=== PATIENT | female | born 1980 | race Caucasian/White ===

== ENCOUNTER 2024-12-03 11:31 | Emergency (ER) | payer MEDICAID ==
[~2024-12-03] VITALS: Ht 162.6 cm; Wt 68.0 kg
[2024-12-03 11:39] VITALS: O2SAT 100
[2024-12-03] MEDS ORDERED: MECLIZINE 25MG TABLET PO ONE (13:15)
[2024-12-03 16:02] LABS: BASOPHILS % 0.2 % (0.0-2.0); EOSINOPHILS % 0.1 % (0.0-5.0); HEMATOCRIT. 43.2 % (36.0-48.0); HEMOGLOBIN. 14.2 g/dL (12.0-16.0); LYMPHOCYTES % 10.2 % (20.0-50.0); MEAN PLATELET VOLUME 11.2 fl (7.4-10.4); MONOCYTES % 2.0 % (2.0-8.0); NEUTROPHILS % 87.5 % (40.0-76.0); PLATELET 177 x1000/uL (130-400); RED BLOOD CELL COUNT 4.78 mill/uL (4.2-5.4); RED CELL DISTRIBUTION WIDTH 13.2 % (11.6-14.6)
[2024-12-03 16:13] LABS: INR 1.0
[2024-12-03] MEDS: MECLIZINE 25MG TABLET PO NR (16:15)
[2024-12-03] MEDS: IBUPROFEN 600MG TABLET PO ONE (16:19)
[2024-12-03 16:23] LABS: CREATININE 0.9 mg/dL (0.6-1.0); TROPONIN I HIGH SENSITIVITY 4 ng/L (3.0-34); UREA NITROGEN BLOOD 7 mg/dL (9-23)
[2024-12-03 16:25] LABS: ASPARTATE AMINOTRANSFERASE 22 IU/L (<34); BILIRUBIN DIRECT 0.5 mg/dL (<=3.0); BILIRUBIN TOTAL 2.0 mg/dL (0.1-1.0); PROTEIN TOTAL 7.7 g/dL (6.0-8.3)
[2024-12-03 17:11] LABS: CLARITY URINE CLEAR (CLEAR); COLOR URINE YELLOW (YELLOW); GLUCOSE URINE NEGATIVE (NEGATIVE); KETONES URINE NEGATIVE (NEGATIVE); LEUKOCYTE ESTERASE URINE NEGATIVE (NEGATIVE); NITRITE URINE NEGATIVE (NEGATIVE); OCCULT BLOOD URINE NEGATIVE (NEGATIVE); PH URINE 6.5 (4.5-8.0); PROTEIN URINE NEGATIVE (NEGATIVE); SPECIFIC GRAVITY URINE 1.005 (1.005-1.030); UROBILINOGEN URINE 0.2 E.U./dL (0.2-1.0)
[2024-12-03] MEDS ORDERED: IBUP-1455 MT (17:14)
[2024-12-03] MEDS ORDERED: MECL-299 MT (17:14)
[2024-12-03 17:28] LABS: HCG SCREEN NEGATIVE
[2024-12-03 17:50] VITALS: BP 118/62; PULSE 68; RESP 12; TEMP 36.8; O2SAT 100
== END 2024-12-03 18:10 | disposition home or self-care (01) ==
LOC: ER 12:57
DX: D25.9 Leiomyoma of uterus, unspecified (principal); R42 Dizziness and giddiness; R06.02 Shortness of breath; R07.89 Other chest pain; R10.2 Pelvic and perineal pain; N83.291 Other ovarian cyst, right side; Z86.018 Personal history of other benign neoplasm; Z87.19 Personal history of other diseases of the digestive system; Z79.899 Other long term (current) drug therapy; Z88.0 Allergy status to penicillin
CPT/HCPCS: 99285; 76830; 76856; 71045; 80076; 80048; 81003; 84703; 85025; 85610; 84484; 36415; 93005; J8597

== ENCOUNTER 2025-01-24 10:35 | Emergency (ER) | payer MEDICAID ==
[~2025-01-24] VITALS: Ht 154.9 cm; Wt 66.0 kg
[~2025-01-24 10:35] MED LIST: IBUP-1455 MT; MECL-299 MT
[2025-01-24 10:44] VITALS: O2SAT 96
[2025-01-24 10:54] VITALS: BP 114/74; PULSE 88; RESP 16; TEMP 36.8; O2SAT 100
[2025-01-24 11:38] LABS: BASOPHILS % 0.6 % (0.0-2.0); EOSINOPHILS % 0.6 % (0.0-5.0); HEMATOCRIT. 40.3 % (36.0-48.0); HEMOGLOBIN. 13.6 g/dL (12.0-16.0); LYMPHOCYTES % 31.5 % (20.0-50.0); MEAN PLATELET VOLUME 10.7 fl (7.4-10.4); MONOCYTES % 5.7 % (2.0-8.0); NEUTROPHILS % 61.6 % (40.0-76.0); PLATELET 170 x1000/uL (130-400); RED BLOOD CELL COUNT 4.48 mill/uL (4.2-5.4); RED CELL DISTRIBUTION WIDTH 13.2 % (11.6-14.6)
[2025-01-24 11:57] LABS: CREATININE 0.8 mg/dL (0.6-1.0); UREA NITROGEN BLOOD 8 mg/dL (9-23)
[2025-01-24 12:19] LABS: CLARITY URINE CLEAR (CLEAR); COLOR URINE YELLOW (YELLOW)
[2025-01-24 12:20] LABS: GLUCOSE URINE NEGATIVE (NEGATIVE); KETONES URINE NEGATIVE (NEGATIVE); LEUKOCYTE ESTERASE URINE 1+ (NEGATIVE); NITRITE URINE NEGATIVE (NEGATIVE); OCCULT BLOOD URINE NEGATIVE (NEGATIVE); PH URINE 7.0 (4.5-8.0); PROTEIN URINE NEGATIVE (NEGATIVE); SPECIFIC GRAVITY URINE 1.014 (1.005-1.030); UROBILINOGEN URINE 1.0 E.U./dL (0.2-1.0)
[2025-01-24 12:26] LABS: SQUAMOUS EPITHELIAL CELL URINE 1+ /lpf (RARE/1+)
[2025-01-24 12:27] LABS: BACTERIA URINE 2+; RBC URINE 0-2 /hpf (0-2)
== END 2025-01-24 14:54 | disposition home or self-care (01) ==
LOC: ER 10:35
DX: R20.2 Paresthesia of skin (principal); Z88.0 Allergy status to penicillin
CPT/HCPCS: 36415; 80048; 81003; 81025; 85025; 99284